=== PATIENT | female | born 1975 ===

== ENCOUNTER 2017-11-04 01:48 | Inpatient (IN) ==
[2017-11-04] MEDS ORDERED: cefOXitin 1,000 MG in SODIUM CHLORIDE 0.9% 100 ML IV STA (02:13)
[2017-11-04] MEDS ORDERED: SODIUM CHLORIDE 0.9% 500 ML IV STA (02:25)
[2017-11-04] MEDS ORDERED: diphenhydrAMINE 50 MG/1 ML VIAL IV STA (03:17)
[2017-11-04] MEDS ORDERED: MORPHINE 2 MG/1 ML SYRINGE IV STA (03:17)
[2017-11-04] MEDS ORDERED: diphenhydrAMINE 50 MG/1 ML VIAL ONE (03:28)
[2017-11-04] MEDS ORDERED: MORPHINE 2 MG/1 ML SYRINGE ONE (03:28)
[2017-11-04] MEDS ORDERED: ONDANSETRON 4 MG/2 ML VIAL IV PRN (04:27)
[2017-11-04] MEDS: DEXTROSE 5% LACTATED RINGERS 1,000 ML IV SCH ×2 (05:25→22:59)
[2017-11-04] MEDS: AMPICILLIN/SULBACTAM 3,000 MG in SODIUM CHLORIDE 0.9% 100 ML IV SCH ×4 (07:01→22:46)
[2017-11-04] MEDS: MORPHINE 2 MG/1 ML SYRINGE IV PRN ×4 (08:44→21:15)
[2017-11-04] MEDS ORDERED: LIDOCAINE 2%/EPI 20 ML VIAL ONE (08:56)
[2017-11-04] MEDS ORDERED: BUPIVACAINE 0.25% 50 ML VIAL ONE (08:57)
[2017-11-04] MEDS ORDERED: TISSUE ADHESIVE 1 EACH APPLICATOR TOP ONE (08:57)
[2017-11-04] MEDS: PANTOPRAZOLE 40 MG VIAL IV SCH (09:45)
[2017-11-04] MEDS ORDERED: SEVOFLURANE 1 UNIT/15 MINUTE INH ONE (10:47)
[2017-11-04] MEDS ORDERED: PROPOFOL 200 MG/20 ML VIAL IV ONE (10:47)
[2017-11-04] MEDS ORDERED: ONDANSETRON 4 MG/2 ML VIAL ONE ×2 (10:48→11:22)
[2017-11-04] MEDS ORDERED: NEOSTIGMINE 10 MG/10 ML VIAL ONE (10:48)
[2017-11-04] MEDS ORDERED: DEXAMETHASONE 10 MG/1 ML VIAL ONE (10:48)
[2017-11-04] MEDS ORDERED: fentaNYL 100 MCG/2 ML VIAL ONE (10:48)
[2017-11-04] MEDS ORDERED: ROCURONIUM 100 MG/10 ML VIAL IV ONE (10:48)
[2017-11-04] MEDS ORDERED: LACTATED RINGERS 1,000 ML IV ONE (10:48)
[2017-11-04] MEDS ORDERED: GLYCOPYRROLATE 0.4 MG/2 ML VIAL ONE (10:48)
[2017-11-04] MEDS ORDERED: MIDAZOLAM 2 MG/2 ML VIAL ONE (10:48)
[2017-11-04] MEDS ORDERED: MORPHINE 10 MG/1 ML VIAL ONE (11:22)
[2017-11-04] MEDS: MORPHINE 10 MG/1 ML VIAL IV PRN ×2 (11:24→11:29)
[2017-11-04] MEDS: SIMETHICONE CHEW 80 MG TABLET PO PRN (21:14)
[2017-11-05] MEDS: MORPHINE 2 MG/1 ML SYRINGE IV PRN ×2 (00:19→06:02)
[2017-11-05] MEDS: DEXTROSE 5% LACTATED RINGERS 1,000 ML IV SCH ×2 (04:26→06:05)
[2017-11-05] MEDS: AMPICILLIN/SULBACTAM 3,000 MG in SODIUM CHLORIDE 0.9% 100 ML IV SCH ×4 (06:05→22:17)
[2017-11-05] MEDS: PANTOPRAZOLE 40 MG VIAL IV SCH (10:01)
[2017-11-05] MEDS: PANTOPRAZOLE 40 MG TABLET PO SCH (10:22)
[2017-11-05] MEDS: SIMETHICONE CHEW 80 MG TABLET PO PRN (12:09)
[2017-11-05] MEDS: oxyCODONE/ACETAMINOPHEN 5-325 MG TABLET PO PRN ×2 (12:35→19:25)
[2017-11-05] MEDS: BISACODYL 10 MG SUPP RECTAL SCH ×2 (13:54→22:17)
[2017-11-06] MEDS: AMPICILLIN/SULBACTAM 3,000 MG in SODIUM CHLORIDE 0.9% 100 ML IV SCH ×2 (04:30→11:16)
[2017-11-06] MEDS: BISACODYL 10 MG SUPP RECTAL SCH (09:37)
[2017-11-06] MEDS: PANTOPRAZOLE 40 MG TABLET PO SCH (09:38)
[2017-11-06 12:05] VITALS: BP 102/54
== END 2017-11-06 14:30 | disposition home or self-care (01) | DRG 342 ==
LOC: EDBD → EDUNIT# → N.ED 01:48 → N.EDINP 04:27 → N.3E 04:54
PROVIDERS: ADMIT Surgery; ATTEND Surgery